=== PATIENT | male | born 1970 | race Caucasian/White ===

== ENCOUNTER → 2020-09-25 | Outpatient (CLI) | payer OTHER ==
[~2020-09-25] MED LIST: BREO ELLIPTA 11 EACH INH; CALCIUM500 MG PO; CELEXA40 MG PO; CENTRUM ULTRA1 EACH PO; COZAAR50 MG PO; CRESTOR40 MG PO; ECOTRIN81 MG PO; GLUCOPHAGE XR500 MG PO; MELATONIN1 MG PO; METOPROLOL TART25 MG PO; NEXIUM40 MG PO; RANEXA500 MG PO; REQUIP3 MG PO; VALIUM 5 MG TAB5 MG PO; VITAMIN D250000 UNIT PO; WELLBUTRIN XL300 M1 PO; XARELTO20 MG PO
[2020-09-25 15:22] LABS: HEMOGLOBIN 14.6 gm/dl (14.0-17.5); RED BLOOD COUNT 4.68 M/UL (4.20-5.50); WHITE BLOOD COUNT 8.7 K/UL (4.5-11.0)
[2020-09-25 15:50] LABS: BUN/CREATININE RATIO 12 (0-10)
== END ==
LOC: LAB 14:39
PROVIDERS: Orthopaedic Surgery
DX: Z01.812 Encounter for preprocedural laboratory examination (principal); N39.0 Urinary tract infection, site not specified; R79.1 Abnormal coagulation profile; R07.9 Chest pain, unspecified; R68.89 Other general symptoms and signs; Z79.899 Other long term (current) drug therapy
CPT/HCPCS: 36415; 71046; 80053; 85025; 85610; 85730; 93005

== ENCOUNTER → 2021-06-01 | Outpatient (CLI) | payer OTHER | LOC: EXRD 11:14 | DX: R07.9 Chest pain, unspecified (principal) | CPT/HCPCS: 93971 ==

== ENCOUNTER → 2021-06-12 | Outpatient (CLI) | payer OTHER | LOC: SLEEP 10:02 | DX: G47.33 Obstructive sleep apnea (adult) (pediatric) (principal); G47.10 Hypersomnia, unspecified | CPT/HCPCS: 95811 ==

== ENCOUNTER → 2021-12-03 | Outpatient (CLI) | payer OTHER | LOC: EXRD 11:05 | DX: R55 Syncope and collapse (principal) | CPT/HCPCS: 93880 ==